=== PATIENT | female | born 1940 | race Caucasian/White ===

== ENCOUNTER 2021-01-20 23:19 | Emergency (ER) | payer MEDICARE ==
[~2021-01-20] VITALS: Ht 152.4 cm; Wt 74.5 kg
[2021-01-20] MEDS ORDERED: SODIUM CHLORIDE 0.9% 1,000ML IVBOLUS ONE (23:30)
[2021-01-20 23:54] LABS: BASOPHILS % (AUTO) 0 % (0-1); EOSINOPHILS % (AUTO) 0 % (1-7); LYMPHOCYTES % (AUTO) 4 % (22-44); MEAN CORPUSCULAR HEMOGLOBIN 29.6 pg (27.0-34.8); MEAN CORPUSCULAR HGB CONC 33.6 g/dL (32.4-35.8); MEAN PLATELET VOLUME 7.4 fL (7.4-10.4); MONOCYTES % (AUTO) 4 % (2-9); NEUTROPHILS % (AUTO) 91 % (42-75); PLATELET COUNT 245 x10^3/uL (130-400); RED BLOOD COUNT 4.93 x10^6/uL (3.82-5.3); RED CELL DISTRIBUTION WIDTH 15.4 % (9.6-15.2)
[2021-01-20] MEDS ORDERED: DIPHENHYDRAMINE 50 MG/ML, 1ML ONE (23:55)
[2021-01-20] MEDS ORDERED: OMNIPAQUE 350 MG/ML, 100ML BOTTLE ONE (23:59)
--- NOTE | 2021-01-20 23:59 | NUR ---
patient placed in hospital gown. ekg performed. call monzon in reach. safety maintained. will continue to monitor.
[2021-01-21] MEDS ORDERED: DIPHENHYDRAMINE 50 MG/ML, 1ML IVPush ONE
[2021-01-21 00:01] LABS: ALANINE AMINOTRANSFERASE 37 U/L (12-78); ALBUMIN 3.8 g/dL (3.4-5.0); ANION GAP 7 mmol/L (5-15); CALCIUM 9.7 mg/dL (8.5-10.1); CHLORIDE 105 mmol/L (98-107); CREATININE 1.15 mg/dL (0.55-1.02)
[2021-01-21 00:06] LABS: ALKALINE PHOSPHATASE 122 U/L (45-117); BILIRUBIN,TOTAL 0.3 mg/dL (0.2-1.0); TOTAL PROTEIN 6.9 g/dL (6.4-8.2); TROPONIN I < 0.015 ng/mL (0.000-0.045)
[2021-01-21 00:08] LABS: MD SCAN
[2021-01-21] MEDS ORDERED: OMNIPAQUE 350 MG/ML, 100ML BOTTLE ONE (00:28)
--- NOTE | 2021-01-21 00:34 | NUR ---
BREAK RN: PT AT CT.
--- NOTE | 2021-01-21 01:25 | NUR ---
patient assisted to [facility]. steady gait to C
--- NOTE | 2021-01-21 01:49 | NUR ---
patient tolerated PO fluid trial. Dr. villareal notified. patient denies nausea at this time
--- NOTE | 2021-01-21 02:16 | NUR ---
discharge instructions reviewed with patient. no further questions. prescription handed directly to patient. patient requested list of clinics in area to start to establish PCP. this was provided. VS remain stable on RA. IV removed per DC protocol and pressure dressing applied. all personal belongings with patient. WC to lobby
[2021-01-21 02:20] VITALS: BP 149/72
== END 2021-01-21 02:30 | disposition home or self-care (01) ==
LOC: ED 23:49
DX: K52.9 Noninfective gastroenteritis and colitis, unspecified (principal); E86.0 Dehydration; R11.2 Nausea with vomiting, unspecified; R10.84 Generalized abdominal pain; Z85.3 Personal history of malignant neoplasm of breast; Z87.891 Personal history of nicotine dependence
CPT/HCPCS: 36415; 74177; 80053; 83605; 83690; 84484; 85025; 93005; 96361; 96374; 99285; J1200; J7030; Q9967

== ENCOUNTER 2021-01-26 18:28 | Inpatient (IN) | payer MEDICARE ==
[~2021-01-26] VITALS: Ht 152.4 cm; Wt 77.6 kg
--- NOTE | 2021-01-26 18:54 | NUR ---
PT WAS IN ED LAST SUNDAY WITH GASTROENTERITIS AND BEGAN TO FEEL BETTER. LAST NIGHT PT REPORTS SAME PAINS HER GASTROENTERIS PAIN. SAID SHE THREW UP HER DINNER. HAVING PAINS IN HER ABD UPPER QUADRANTS. REPORTS PAIN A INTERMITTENT SHARP AND IRRITATING. HAS BEEN HAVING N/V SINCE.
[2021-01-26] MEDS ORDERED: ONDANSETRON 2MG/ML, 2ML ONE (19:54)
[2021-01-26] MEDS ORDERED: DIPHENHYDRAMINE 50 MG/ML, 1ML ONE (19:54)
[2021-01-26] MEDS ORDERED: methylPREDNISolone SOD SUCC 125 MG/2 ML ONE (19:54)
[2021-01-26] MEDS ORDERED: MORPHINE SULFATE 4 MG/ML, 1ML ONE (19:55)
[2021-01-26] MEDS ORDERED: MORPHINE SULFATE 4 MG/ML, 1ML IVPush PRN (20:00)
[2021-01-26] MEDS ORDERED: DIPHENHYDRAMINE 50 MG/ML, 1ML IVPush ONE (20:00)
[2021-01-26] MEDS ORDERED: SODIUM CHLORIDE 0.9% 1,000 ML IV ONE (20:00)
[2021-01-26] MEDS ORDERED: methylPREDNISolone SOD SUCC 125 MG/2 ML IVPush ONE (20:00)
[2021-01-26] MEDS ORDERED: SODIUM CHLORIDE FLUSH 10ML SYR IVF ONE (20:00)
[2021-01-26] MEDS ORDERED: ONDANSETRON 2MG/ML, 2ML IVPush ONE (20:00)
[2021-01-26 20:22] LABS: BASOPHILS % (AUTO) 0 % (0-1); EOSINOPHILS % (AUTO) 1 % (1-7); LYMPHOCYTES % (AUTO) 6 % (22-44); MEAN CORPUSCULAR HEMOGLOBIN 29.5 pg (27.0-34.8); MEAN CORPUSCULAR HGB CONC 33.2 g/dL (32.4-35.8); MONOCYTES % (AUTO) 8 % (2-9); NEUTROPHILS % (AUTO) 86 % (42-75); PLATELET COUNT 273 x10^3/uL (130-400); RED BLOOD COUNT 4.97 x10^6/uL (3.82-5.3); RED CELL DISTRIBUTION WIDTH 15.3 % (9.6-15.2)
--- NOTE | 2021-01-26 20:28 | NUR ---
PT O2 DROPPED TO 85%. PUT PT ON 2L NC AND SP02 BACK TO 95%
[2021-01-26 20:33] LABS: ALANINE AMINOTRANSFERASE 29 U/L (12-78); ALBUMIN 3.3 g/dL (3.4-5.0); ANION GAP 7 mmol/L (5-15); CHLORIDE 106 mmol/L (98-107); CREATININE 1.04 mg/dL (0.55-1.02)
[2021-01-26 20:35] LABS: ALKALINE PHOSPHATASE 112 U/L (45-117); BILIRUBIN,TOTAL 0.5 mg/dL (0.2-1.0); TOTAL PROTEIN 6.6 g/dL (6.4-8.2)
--- NOTE | 2021-01-26 20:56 | NUR ---
VSS AWAITING TO GO TO CT
--- NOTE | 2021-01-26 20:56 | NUR ---
PT LYING IN BED. TOLERATED MEDS PER MD ORDER.
--- NOTE | 2021-01-26 21:49 | NUR ---
PT OFF UNIT IN IMAGING
[2021-01-26] MEDS ORDERED: OMNIPAQUE 350 MG/ML, 100ML BOTTLE ONE (21:58)
--- NOTE | 2021-01-26 22:42 | NUR ---
PUT PT ON A HOSPITAL BED. PT RESTING IN BED. VSS. TOM LGHT WITHIN REACH. PT ATTACHED TO MONITORS
--- NOTE | 2021-01-26 22:46 | NUR ---
PT DOES NOT REMEMBER THE MEDICATIONS SHE TAKES.
[2021-01-26 22:48] LABS: MICROSCOPIC AUTO
--- NOTE | 2021-01-26 22:59 | NUR ---
REPORT RECIEVED FROM LORA AND JR GALLOWAY
--- NOTE | 2021-01-26 23:32 | NUR ---
HOSPITALIST AT BEDSIDE
[2021-01-27] MEDS ORDERED: ONDANSETRON 2MG/ML, 2ML IVPush PRN
--- NOTE | 2021-01-27 00:36 | NUR ---
atempte ng tube insert x3 with 2 different rn's. 16F and 14F unsuccessful will have another rn try 12 F.
--- NOTE | 2021-01-27 00:36 | NUR ---
report given to jenn neely
--- NOTE | 2021-01-27 01:13 | NUR ---
successful 16F ng tube placement, pt tolerated well, xray ordered for placement
--- NOTE | 2021-01-27 01:15 | NUR ---
Break RN: gear technician at bedside.
[2021-01-27 01:30] VITALS: BP 174/81
[2021-01-27] MEDS: morphine SULFATE 10 MG/ML, 1ML IVPush PRN ×2 (01:49→17:27)
[2021-01-27] MEDS: SODIUM CHLORIDE 0.9% 1,000 ML IV SCH ×2 (02:08→13:48)
[2021-01-27] MEDS: BISACODYL 10 MG SUPP PR SCH ×2 (02:08→08:18)
[2021-01-27 05:57] LABS: BASOPHILS % (AUTO) 0 % (0-1); EOSINOPHILS % (AUTO) 0 % (1-7); LYMPHOCYTES % (AUTO) 3 % (22-44); MEAN CORPUSCULAR HEMOGLOBIN 29.7 pg (27.0-34.8); MEAN CORPUSCULAR HGB CONC 33.3 g/dL (32.4-35.8); MEAN PLATELET VOLUME 7.2 fL (7.4-10.4); MONOCYTES % (AUTO) 1 % (2-9); NEUTROPHILS % (AUTO) 96 % (42-75); PLATELET COUNT 255 x10^3/uL (130-400); RED BLOOD COUNT 4.49 x10^6/uL (3.82-5.3); RED CELL DISTRIBUTION WIDTH 15.2 % (9.6-15.2)
[2021-01-27 06:05] LABS: ANION GAP 9 mmol/L (5-15); CALCIUM 9.4 mg/dL (8.5-10.1); CHLORIDE 105 mmol/L (98-107)
[2021-01-27 06:06] LABS: CREATININE 1.01 mg/dL (0.55-1.02)
[2021-01-27 06:30] VITALS: BP 148/77
[2021-01-27 14:21] VITALS: BP 161/73
[2021-01-27 20:16] VITALS: BP 151/75
[2021-01-27] MEDS ORDERED: DONE5TAB7 PO (22:45)
[2021-01-27] MEDS ORDERED: DILT240C80 PO (22:45)
[2021-01-27] MEDS ORDERED: LEVO88CA4 PO (22:45)
[2021-01-27] MEDS ORDERED: POTASSIUM CHLORIDE PO (22:45)
[2021-01-27] MEDS ORDERED: PRAV10TA2 PO (22:45)
[2021-01-27] MEDS ORDERED: APIX5TAB PO (22:45)
[2021-01-28 03:01] VITALS: BP 155/76
[2021-01-28 04:57] LABS: BASOPHILS % (AUTO) 0 % (0-1); EOSINOPHILS % (AUTO) 2 % (1-7); LYMPHOCYTES % (AUTO) 11 % (22-44); MEAN CORPUSCULAR HEMOGLOBIN 29.3 pg (27.0-34.8); MEAN CORPUSCULAR HGB CONC 32.8 g/dL (32.4-35.8); MEAN PLATELET VOLUME 7.1 fL (7.4-10.4); MONOCYTES % (AUTO) 15 % (2-9); NEUTROPHILS % (AUTO) 72 % (42-75); PLATELET COUNT 239 x10^3/uL (130-400); RED BLOOD COUNT 4.24 x10^6/uL (3.82-5.3); RED CELL DISTRIBUTION WIDTH 15.2 % (9.6-15.2)
[2021-01-28 05:10] LABS: ANION GAP 2 mmol/L (5-15); CALCIUM 8.5 mg/dL (8.5-10.1); CHLORIDE 111 mmol/L (98-107)
[2021-01-28 05:13] LABS: CREATININE 0.95 mg/dL (0.55-1.02)
[2021-01-28] MEDS ORDERED: vitamin b12 PO (05:19)
[2021-01-28] MEDS ORDERED: CALCIUM PO (05:19)
[2021-01-28] MEDS ORDERED: [UNRECOGNIZED DRUG - OTHER] PO (05:19)
[2021-01-28] MEDS ORDERED: CHOLECALCIFEROL PO (05:19)
[2021-01-28] MEDS ORDERED: FLUO40CA2 PO (05:19)
[2021-01-28] MEDS ORDERED: KRIL500C PO (05:19)
[2021-01-28] MEDS ORDERED: areds 2 PO (05:19)
[2021-01-28] MEDS ORDERED: [UNRECOGNIZED DRUG - OTHER] PO (05:19)
[2021-01-28] MEDS: SODIUM CHLORIDE 0.9% 1,000 ML IV SCH ×2 (05:56→18:00)
[2021-01-28 06:53] VITALS: BP 177/79
[2021-01-28] MEDS ORDERED: CHLORHEXIDINE 15 ML UDC ONE (07:40)
[2021-01-28] MEDS ORDERED: CHLORHEXIDINE 15 ML UDC PO ONE (08:00)
[2021-01-28] MEDS ORDERED: ROCURONIUM 10 MG/ML,10ML ONE (08:46)
[2021-01-28] MEDS ORDERED: PROPOFOL 10 MG/ML, 20ML ONE (08:46)
[2021-01-28] MEDS ORDERED: CEFAZOLIN 1,000 MG ONE ×2 (08:46→14:57)
[2021-01-28] MEDS ORDERED: ONDANSETRON 2MG/ML, 2ML ONE (08:46)
[2021-01-28] MEDS ORDERED: GLYCOPYRROLATE 0.2MG/1ML, 5ML ONE (08:46)
[2021-01-28] MEDS ORDERED: DEXAMETHASONE 4 MG/ML, 1ML ONE (08:46)
[2021-01-28] MEDS ORDERED: NEOSTIGMINE 1 MG/ML, 10ML ONE (08:46)
[2021-01-28] MEDS ORDERED: SUCCINYLCHOLINE 20 MG/ML, 10ML ONE (08:46)
[2021-01-28] MEDS ORDERED: CEFOTETAN 2 GM ONE (08:46)
[2021-01-28] MEDS ORDERED: FENTANYL PF 250 MCG/5ML ONE (08:48)
[2021-01-28] MEDS: BISACODYL 10 MG SUPP PR SCH (09:00)
[2021-01-28] MEDS ORDERED: hydrALAzine 20 MG/ML, 1ML IV PRN (12:00)
[2021-01-28] MEDS ORDERED: HYDROmorphone 2 MG/ML, 1ML IVPush PRN (12:00)
[2021-01-28] MEDS ORDERED: ALBUTEROL SULFATE 2.5 MG/3 ML NPPB PRN (12:00)
[2021-01-28] MEDS ORDERED: KETOROLAC 30 MG/1 ML IV PRN (12:00)
[2021-01-28] MEDS ORDERED: OXYcodone 5 MG/5 ML ORAL.SOL UDC PO PRN (12:00)
[2021-01-28] MEDS ORDERED: ACETAMINOPHEN 325 MG TABLET PO PRN (12:00)
[2021-01-28] MEDS ORDERED: PROMETHAZINE 25 MG/ML, 1ML IV PRN (12:00)
[2021-01-28] MEDS ORDERED: MEPERIDINE/PF 25MG/0.5ML IVPush PRN (12:00)
[2021-01-28] MEDS ORDERED: DIAZEPAM 5 MG/ML, 2ML IVPush PRN (12:00)
[2021-01-28] MEDS ORDERED: LABETALOL 5MG/ML, 20ML ONE (12:18)
[2021-01-28] MEDS: LABETALOL 5MG/ML, 20ML IV PRN ×2 (12:19→12:33)
[2021-01-28] MEDS ORDERED: FENTANYL PF 100 MCG/2ML ONE ×2 (12:29→12:50)
[2021-01-28] MEDS ORDERED: KETOROLAC 30 MG/1 ML ONE (12:29)
[2021-01-28] MEDS: FENTANYL PF 100 MCG/2ML IV PRN ×3 (12:30→12:52)
[2021-01-28 14:06] VITALS: BP 137/58
[2021-01-28] MEDS ORDERED: ONDANSETRON 2MG/ML, 2ML IV PRN (14:30)
[2021-01-28] MEDS: LACTATED RINGERS 1,000 ML IV SCH (14:59)
[2021-01-28 19:36] VITALS: BP 162/63
[2021-01-28] MEDS: CEFOTETAN PMX 1GM/50ML 50 ML IVPB SCH (22:40)
[2021-01-29 00:13] VITALS: BP 108/54
[2021-01-29] MEDS: LACTATED RINGERS 1,000 ML IV SCH ×3 (02:11→23:11)
[2021-01-29 04:21] VITALS: BP 100/55
[2021-01-29 05:12] LABS: ANION GAP 3 mmol/L (5-15); CALCIUM 7.6 mg/dL (8.5-10.1); CHLORIDE 112 mmol/L (98-107); CREATININE 1.51 mg/dL (0.55-1.02)
[2021-01-29 05:13] LABS: BASOPHILS % (AUTO) 0 % (0-1); EOSINOPHILS % (AUTO) 0 % (1-7); LYMPHOCYTES % (AUTO) 7 % (22-44); MEAN CORPUSCULAR HEMOGLOBIN 30.2 pg (27.0-34.8); MEAN CORPUSCULAR HGB CONC 33.6 g/dL (32.4-35.8); MEAN PLATELET VOLUME 7.2 fL (7.4-10.4); MONOCYTES % (AUTO) 12 % (2-9); NEUTROPHILS % (AUTO) 81 % (42-75); PLATELET COUNT 226 x10^3/uL (130-400); RED BLOOD COUNT 3.57 x10^6/uL (3.82-5.3); RED CELL DISTRIBUTION WIDTH 15.2 % (9.6-15.2)
[2021-01-29] MEDS: ENOXAPARIN 40 MG/0.4 ML SQ SCH (05:42)
[2021-01-29 07:07] VITALS: BP 114/51
[2021-01-29] MEDS: CEFOTETAN PMX 1GM/50ML 50 ML IVPB SCH ×2 (10:01→22:07)
[2021-01-29] MEDS: BISACODYL 10 MG SUPP PR SCH (10:01)
[2021-01-29] MEDS: SODIUM CHLORIDE 0.9% 1,000 ML IV SCH (12:30)
[2021-01-29 13:02] VITALS: BP 122/61
[2021-01-29 20:07] VITALS: BP 121/56
[2021-01-30] MEDS: SODIUM CHLORIDE 0.9% 1,000 ML IV SCH ×2 (01:20→14:40)
[2021-01-30 01:55] VITALS: BP 145/49
[2021-01-30] MEDS: ENOXAPARIN 40 MG/0.4 ML SQ SCH (06:26)
[2021-01-30 06:34] LABS: BASOPHILS % (AUTO) 1 % (0-1); EOSINOPHILS % (AUTO) 1 % (1-7); LYMPHOCYTES % (AUTO) 4 % (22-44); MEAN CORPUSCULAR HEMOGLOBIN 30.1 pg (27.0-34.8); MEAN CORPUSCULAR HGB CONC 33.1 g/dL (32.4-35.8); MEAN PLATELET VOLUME 7.1 fL (7.4-10.4); MONOCYTES % (AUTO) 7 % (2-9); NEUTROPHILS % (AUTO) 88 % (42-75); PLATELET COUNT 234 x10^3/uL (130-400); RED BLOOD COUNT 3.45 x10^6/uL (3.82-5.3); RED CELL DISTRIBUTION WIDTH 15.3 % (9.6-15.2)
[2021-01-30 06:43] LABS: ANION GAP 5 mmol/L (5-15); CALCIUM 8.3 mg/dL (8.5-10.1); CHLORIDE 114 mmol/L (98-107); CREATININE 1.15 mg/dL (0.55-1.02)
[2021-01-30 08:20] VITALS: BP 151/70
[2021-01-30] MEDS: BISACODYL 10 MG SUPP PR SCH (09:16)
[2021-01-30] MEDS: LACTATED RINGERS 1,000 ML IV SCH ×2 (09:17→19:38)
[2021-01-30] MEDS: CEFOTETAN PMX 1GM/50ML 50 ML IVPB SCH ×2 (09:19→22:40)
[2021-01-30 13:14] VITALS: BP 151/81
[2021-01-30 19:16] VITALS: BP 145/72
[2021-01-31 01:11] VITALS: BP 147/62
[2021-01-31] MEDS: SODIUM CHLORIDE 0.9% 1,000 ML IV SCH ×2 (04:00→16:11)
[2021-01-31] MEDS: ENOXAPARIN 40 MG/0.4 ML SQ SCH (05:17)
[2021-01-31] MEDS: LACTATED RINGERS 1,000 ML IV SCH ×2 (05:18→16:11)
[2021-01-31 08:13] VITALS: BP 131/73
[2021-01-31] MEDS: BISACODYL 10 MG SUPP PR SCH (09:26)
[2021-01-31] MEDS: CEFOTETAN PMX 1GM/50ML 50 ML IVPB SCH ×2 (09:49→21:51)
[2021-01-31] MEDS: LORazepam 2 MG/ML, 1ML IVPush PRN (13:57)
[2021-01-31 15:09] VITALS: BP 131/78
[2021-01-31] MEDS ORDERED: TPN PER PHARMACY MC PRN (17:30)
[2021-01-31 18:39] VITALS: BP 124/62
[2021-02-01 01:26] VITALS: BP 155/67
[2021-02-01] MEDS: LACTATED RINGERS 1,000 ML IV SCH ×2 (01:55→12:26)
[2021-02-01 06:11] LABS: ALANINE AMINOTRANSFERASE 15 U/L (12-78); ALBUMIN 1.7 g/dL (3.4-5.0); ANION GAP 7 mmol/L (5-15); CALCIUM 8.4 mg/dL (8.5-10.1); CHLORIDE 115 mmol/L (98-107); CREATININE 0.89 mg/dL (0.55-1.02)
[2021-02-01 06:17] LABS: ALKALINE PHOSPHATASE 81 U/L (45-117); BILIRUBIN,TOTAL 0.4 mg/dL (0.2-1.0); PREALBUMIN 3.2 mg/dL (20.0-40.0); TOTAL PROTEIN 4.9 g/dL (6.4-8.2); TRIGLYCERIDES 132 mg/dL (50-200)
[2021-02-01] MEDS: SODIUM CHLORIDE 0.9% 1,000 ML IV SCH ×2 (06:40→20:00)
[2021-02-01 06:41] VITALS: BP 161/84
[2021-02-01] MEDS: BISACODYL 10 MG SUPP PR SCH (08:08)
[2021-02-01] MEDS: LORazepam 2 MG/ML, 1ML IVPush PRN ×2 (08:18→18:53)
[2021-02-01] MEDS ORDERED: ENOXAPARIN 30 MG/0.3 ML SQ SCH (09:00)
[2021-02-01] MEDS: CEFOTETAN PMX 1GM/50ML 50 ML IVPB SCH (10:40)
[2021-02-01] MEDS ORDERED: FILTER, DISP 1.2 MICRON FOR TPN/PVN IV PRN (12:00)
[2021-02-01 12:40] VITALS: BP 149/87
[2021-02-01] MEDS ORDERED: POTASSIUM CHLORIDE 40 MEQ in SODIUM CHLORIDE 0.9% 500 ML IV ONE (16:30)
[2021-02-01] MEDS ORDERED: DEXTROSE 50%, 50ML SYRINGE IVPush PRN (17:00)
[2021-02-01] MEDS ORDERED: PVN PER PHARMACY IV SCH (17:00)
[2021-02-01] MEDS ORDERED: [UNRECOGNIZED DRUG - OTHER] IV SCH (17:00)
[2021-02-01] MEDS ORDERED: FAT EMUL IV SCH (17:00)
[2021-02-01] MEDS ORDERED: DEXTROSE 10% 500 ML IV PRN (17:00)
[2021-02-01] MEDS ORDERED: SMOF TPN IV SCH (17:00)
[2021-02-01] MEDS ORDERED: DEXTROSE 70% IV SCH (17:00)
[2021-02-01] MEDS ORDERED: AMINO ACID 10% IV SCH (17:00)
[2021-02-01] MEDS ORDERED: ENOXAPARIN 40 MG/0.4 ML SQ SCH (17:30)
[2021-02-01 18:45] VITALS: BP 168/74
[2021-02-01] MEDS: INSULIN REGULAR LOW DOSE Q6H X 48HRS SQ-INSULIN SCH (21:00)
[2021-02-02 00:27] VITALS: BP 176/76
[2021-02-02] MEDS: hydrALAzine 20 MG/ML, 1ML IV PRN ×3 (00:58→12:19)
[2021-02-02] MEDS: INSULIN REGULAR LOW DOSE Q6H X 48HRS SQ-INSULIN SCH ×4 (03:00→21:40)
[2021-02-02 05:29] LABS: ALBUMIN 1.7 g/dL (3.4-5.0); ANION GAP 4 mmol/L (5-15); CALCIUM 8.2 mg/dL (8.5-10.1); CHLORIDE 114 mmol/L (98-107)
[2021-02-02 05:34] LABS: ALANINE AMINOTRANSFERASE 17 U/L (12-78); ALKALINE PHOSPHATASE 83 U/L (45-117); BILIRUBIN,TOTAL 0.4 mg/dL (0.2-1.0); CREATININE 0.69 mg/dL (0.55-1.02); TOTAL PROTEIN 4.8 g/dL (6.4-8.2)
[2021-02-02 06:59] VITALS: BP 166/63
[2021-02-02] MEDS: SODIUM CHLORIDE 0.9% 1,000 ML IV SCH (07:03)
[2021-02-02] MEDS: ENOXAPARIN 40 MG/0.4 ML SQ SCH (07:37)
[2021-02-02 08:25] VITALS: BP 158/71
[2021-02-02] MEDS ORDERED: SODIUM CHLORIDE 0.9% 1,000 ML IV SCH (09:00)
[2021-02-02] MEDS: BISACODYL 10 MG SUPP PR SCH (09:17)
[2021-02-02] MEDS ORDERED: FAT EMUL IV SCH ×2 (09:44→17:00)
[2021-02-02] MEDS ORDERED: DEXTROSE 70% IV SCH ×2 (09:44→17:00)
[2021-02-02] MEDS ORDERED: [UNRECOGNIZED DRUG - OTHER] IV SCH ×2 (09:44→17:00)
[2021-02-02] MEDS ORDERED: AMINO ACID 10% IV SCH ×2 (09:44→17:00)
[2021-02-02] MEDS ORDERED: SMOF TPN IV SCH ×2 (09:44→17:00)
[2021-02-02] MEDS ORDERED: POTASSIUM PHOSPHATE IV ONE (10:00)
[2021-02-02] MEDS ORDERED: POTASSIUM CHLORIDE 20 MEQ in SODIUM CHLORIDE 0.9% 250 ML IV ONE (10:00)
[2021-02-02] MEDS ORDERED: DEXTROSE 5% IV ONE (10:00)
[2021-02-02] MEDS: METHYLNALTREXONE 12 MG/0.6 ML SYR SQ SCH (10:40)
[2021-02-02 12:15] VITALS: BP 161/72
[2021-02-02 13:56] VITALS: BP 133/57
[2021-02-02] MEDS ORDERED: FILTER, DISP 1.2 MICRON FOR TPN/PVN IV PRN (17:00)
[2021-02-02] MEDS: POTASSIUM CHLORIDE 20 MEQ TAB.ER.PRT PO SCH (17:07)
[2021-02-02 19:40] VITALS: BP 126/65
[2021-02-03 02:38] VITALS: BP 168/64
[2021-02-03] MEDS: hydrALAzine 20 MG/ML, 1ML IV PRN ×3 (02:46→20:26)
[2021-02-03] MEDS: INSULIN REGULAR LOW DOSE Q6H X 48HRS SQ-INSULIN SCH ×2 (02:48→08:15)
[2021-02-03 05:27] LABS: ANION GAP 5 mmol/L (5-15); CALCIUM 7.9 mg/dL (8.5-10.1); CHLORIDE 113 mmol/L (98-107)
[2021-02-03 05:28] LABS: CREATININE 0.68 mg/dL (0.55-1.02)
[2021-02-03 07:10] VITALS: BP 168/64
[2021-02-03] MEDS: POTASSIUM CHLORIDE 20 MEQ TAB.ER.PRT PO SCH ×2 (07:35→17:00)
[2021-02-03] MEDS: BISACODYL 10 MG SUPP PR SCH (08:10)
[2021-02-03] MEDS: ENOXAPARIN 40 MG/0.4 ML SQ SCH (08:11)
[2021-02-03 13:49] VITALS: BP 135/77
[2021-02-03] MEDS ORDERED: FAT EMUL IV SCH (17:00)
[2021-02-03] MEDS ORDERED: FILTER, DISP 1.2 MICRON FOR TPN/PVN IV PRN (17:00)
[2021-02-03] MEDS ORDERED: [UNRECOGNIZED DRUG - OTHER] IV SCH (17:00)
[2021-02-03] MEDS ORDERED: SMOF TPN IV SCH (17:00)
[2021-02-03] MEDS ORDERED: AMINO ACID 10% IV SCH (17:00)
[2021-02-03] MEDS ORDERED: DEXTROSE 70% IV SCH (17:00)
[2021-02-03 19:43] VITALS: BP 174/77
[2021-02-03] MEDS: INSULIN REGULAR LOW DOSE QDAY SQ-INSULIN SCH (21:00)
[2021-02-03 22:47] VITALS: BP 144/60
[2021-02-04 01:52] VITALS: BP 159/74
[2021-02-04 05:10] LABS: ANION GAP 4 mmol/L (5-15); CALCIUM 7.8 mg/dL (8.5-10.1); CHLORIDE 112 mmol/L (98-107)
[2021-02-04 05:11] LABS: CREATININE 0.58 mg/dL (0.55-1.02)
[2021-02-04 06:40] VITALS: BP 147/78
[2021-02-04] MEDS: POTASSIUM CHLORIDE 20 MEQ TAB.ER.PRT PO SCH (07:59)
[2021-02-04] MEDS: BISACODYL 10 MG SUPP PR SCH (07:59)
[2021-02-04] MEDS: ENOXAPARIN 40 MG/0.4 ML SQ SCH (08:00)
[2021-02-04] MEDS: METHYLNALTREXONE 12 MG/0.6 ML SYR SQ SCH (09:38)
[2021-02-04 12:52] VITALS: BP 158/81
[2021-02-04] MEDS: FILTER, DISP 1.2 MICRON FOR TPN/PVN IV PRN (16:22)
[2021-02-04] MEDS ORDERED: FUROSEMIDE 40 MG/4 ML ONE (16:39)
[2021-02-04] MEDS: FUROSEMIDE 40 MG/4 ML IV SCH (16:41)
[2021-02-04] MEDS ORDERED: AMINO ACID 10% 750 ML, DEXTROSE 70% 350 ML, FAT EMUL/SMOF TPN 175 ML, STERILE WATER 1,0... IV SCH (17:00)
[2021-02-04 20:22] VITALS: BP 126/60
[2021-02-04] MEDS: INSULIN REGULAR LOW DOSE QDAY SQ-INSULIN SCH (22:23)
[2021-02-05 02:35] VITALS: BP 152/68
[2021-02-05 05:09] LABS: ANION GAP 3 mmol/L (5-15); CALCIUM 8.2 mg/dL (8.5-10.1); CHLORIDE 104 mmol/L (98-107); CREATININE 0.67 mg/dL (0.55-1.02)
[2021-02-05 07:09] VITALS: BP 145/77
[2021-02-05] MEDS: FUROSEMIDE 40 MG/4 ML IV SCH ×2 (08:13→16:30)
[2021-02-05] MEDS: BISACODYL 10 MG SUPP PR SCH (08:13)
[2021-02-05] MEDS: ENOXAPARIN 40 MG/0.4 ML SQ SCH (08:14)
[2021-02-05 12:41] VITALS: BP 154/61
[2021-02-05] MEDS ORDERED: FAT EMUL IV SCH (17:00)
[2021-02-05] MEDS ORDERED: SMOF TPN IV SCH (17:00)
[2021-02-05] MEDS ORDERED: DEXTROSE 70% IV SCH (17:00)
[2021-02-05] MEDS ORDERED: [UNRECOGNIZED DRUG - OTHER] IV SCH (17:00)
[2021-02-05] MEDS ORDERED: AMINO ACID 10% IV SCH (17:00)
[2021-02-05] MEDS: LORazepam 2 MG/ML, 1ML IVPush PRN (17:27)
[2021-02-05] MEDS: FILTER, DISP 1.2 MICRON FOR TPN/PVN IV PRN (17:40)
[2021-02-05 19:01] VITALS: BP 132/66
[2021-02-05] MEDS: INSULIN REGULAR LOW DOSE QDAY SQ-INSULIN SCH (21:45)
[2021-02-06 01:16] VITALS: BP 140/62
[2021-02-06 05:58] LABS: ANION GAP 7 mmol/L (5-15); CALCIUM 8.3 mg/dL (8.5-10.1); CHLORIDE 98 mmol/L (98-107)
[2021-02-06 05:59] LABS: CREATININE 0.79 mg/dL (0.55-1.02)
[2021-02-06 06:55] VITALS: BP 127/57
[2021-02-06] MEDS: ENOXAPARIN 40 MG/0.4 ML SQ SCH (08:15)
[2021-02-06] MEDS: FUROSEMIDE 40 MG/4 ML IV SCH ×2 (08:15→17:41)
[2021-02-06] MEDS: BISACODYL 10 MG SUPP PR SCH (08:17)
[2021-02-06 15:18] VITALS: BP 138/48
[2021-02-06] MEDS ORDERED: DEXTROSE 70% IV SCH ×2 (17:00)
[2021-02-06] MEDS ORDERED: [UNRECOGNIZED DRUG - OTHER] IV SCH (17:00)
[2021-02-06] MEDS ORDERED: [UNRECOGNIZED DRUG - OTHER] IV SCH (17:00)
[2021-02-06] MEDS ORDERED: SMOF TPN IV SCH ×2 (17:00)
[2021-02-06] MEDS ORDERED: AMINO ACID 10% IV SCH ×2 (17:00)
[2021-02-06] MEDS ORDERED: FAT EMUL IV SCH ×2 (17:00)
[2021-02-06 19:03] VITALS: BP 107/67
[2021-02-07 03:50] VITALS: BP 108/48
[2021-02-07 07:30] VITALS: BP 118/56
[2021-02-07] MEDS: FUROSEMIDE 40 MG/4 ML IV SCH ×2 (08:09→17:00)
[2021-02-07] MEDS: ENOXAPARIN 40 MG/0.4 ML SQ SCH (09:25)
[2021-02-07 13:43] VITALS: BP 121/74
[2021-03-02] MEDS ORDERED: MERO1PIG IVPB (10:35)
[2021-03-02] MEDS ORDERED: DILT120C2 PO (10:35)
[2021-03-02] MEDS ORDERED: DAPT500V6 IVPB (10:35)
[2021-03-02] MEDS ORDERED: PANT40TA6 PO (10:35)
== END 2021-02-07 17:45 | disposition home health service (06) | DRG 329 ==
LOC: ED 20:15 → EDIP 23:25 → 4NE 01-27 01:30
PROVIDERS: ADMIT Internal Medicine; ATTEND Family Medicine
PROC: 0D9670Z Drainage of Stomach with Drainage Device, Via Natural or Artificial Opening (ICD-10-PCS; 2021-01-27)
PROC: 0DB80ZZ Excision of Small Intestine, Open Approach (ICD-10-PCS; 2021-01-28)
PROC: 0DN80ZZ Release Small Intestine, Open Approach (ICD-10-PCS; principal; 2021-01-28 08:30)
PROC: 3E0336Z Introduction of Nutritional Substance into Peripheral Vein, Percutaneous Approach (ICD-10-PCS; 2021-02-05)
DX: K56.51 Intestinal adhesions [bands], with partial obstruction (principal); N17.0 Acute kidney failure with tubular necrosis; E46 Unspecified protein-calorie malnutrition; F41.9 Anxiety disorder, unspecified; I10 Essential (primary) hypertension; K29.70 Gastritis, unspecified, without bleeding; K56.7 Ileus, unspecified; K57.90 Diverticulosis of intestine, part unspecified, without perforation or abscess without bleeding; Z85.3 Personal history of malignant neoplasm of breast; Z87.891 Personal history of nicotine dependence; Z93.3 Colostomy status; E03.9 Hypothyroidism, unspecified; E78.5 Hyperlipidemia, unspecified; I48.91 Unspecified atrial fibrillation; Z20.822 Contact with and (suspected) exposure to COVID-19; Z91.041 Radiographic dye allergy status; Z88.5 Allergy status to narcotic agent; Z88.0 Allergy status to penicillin; Z91.048 Other nonmedicinal substance allergy status
CPT/HCPCS: 36415; 71045; 74018; 74177; 80048; 80053; 81001; 82962; 83690; 83735; 84100; 84134; 84478; 85025; 87086; 87635; 88307; 93005; 96374; 96375; 99285; G0378; J0610; J0690; J1100; J1650; J1885; J1940; J2270; J2405; J2704; J2710; J3010; J3475; J3480; Q9967; C1765; J0330; J0360; J1200; J1644; J1720; J2060; J2930; J3420; J7030; J7050; J7120

== ENCOUNTER 2021-04-05 09:18 | Day surgery (SDC) | payer MEDICARE ==
[~2021-04-05] VITALS: Ht 152.4 cm; Wt 69.2 kg
[~2021-04-05 09:18] MED LIST: APIX5TAB PO; CALCIUM PO; CHOLECALCIFEROL PO; DAPT500V6 IVPB; DILT120C2 PO; DILT240C80 PO; DONE5TAB7 PO; FLUO40CA2 PO; KRIL500C PO; LEVO88CA4 PO; MERO1PIG IVPB; PANT40TA6 PO; POTASSIUM CHLORIDE PO; PRAV10TA2 PO; [UNRECOGNIZED DRUG - OTHER] PO; [UNRECOGNIZED DRUG - OTHER] PO; areds 2 PO; vitamin b12 PO
[2021-04-05 10:39] VITALS: BP 187/78
[2021-04-05] MEDS ORDERED: SODIUM CHLORIDE 0.9% 1,000 ML IV SCH (11:00)
[2021-04-05] MEDS ORDERED: LIDOCAINE-MPF 1%, 5ML ONE ×2 (11:14)
[2021-04-05] MEDS ORDERED: FENTANYL PF 100 MCG/2ML ONE (11:26)
[2021-04-05] MEDS ORDERED: MIDAZOLAM 1 MG/ML, 5ML ONE (11:26)
[2021-04-05] MEDS ORDERED: NALOXONE 1 MG/ML, 2ML ONE (11:27)
[2021-04-05] MEDS ORDERED: FLUMAZENIL 0.1 MG/1 ML, 5ML ONE (11:27)
== END 2021-04-05 13:55 | disposition home or self-care (01) ==
LOC: OUT 09:18 → EDSTATUS 11:00 → OUT 13:55
PROVIDERS: ATTEND Internal Medicine
DX: Z45.2 Encounter for adjustment and management of vascular access device (principal); I11.0 Hypertensive heart disease with heart failure; I50.30 Unspecified diastolic (congestive) heart failure; I48.0 Paroxysmal atrial fibrillation; E78.5 Hyperlipidemia, unspecified; E03.9 Hypothyroidism, unspecified; F41.1 Generalized anxiety disorder; Z79.01 Long term (current) use of anticoagulants; Z79.890 Hormone replacement therapy; Z79.899 Other long term (current) drug therapy; Z87.891 Personal history of nicotine dependence; Z88.0 Allergy status to penicillin; Z88.5 Allergy status to narcotic agent; Z91.041 Radiographic dye allergy status
CPT/HCPCS: 36589; 77001; 99156; J2250; J3010; J7030; J2310

== ENCOUNTER 2021-04-19 16:24 | Emergency (ER) | payer MEDICARE ==
[~2021-04-19] VITALS: Ht 152.4 cm; Wt 62.4 kg
[2021-04-19 17:03] LABS: MEAN CORPUSCULAR HEMOGLOBIN 26.8 pg (27.0-34.8); MEAN CORPUSCULAR HGB CONC 33.3 g/dL (32.4-35.8); MEAN PLATELET VOLUME 7.4 fL (7.4-10.4); PLATELET COUNT 234 x10^3/uL (130-400); RED BLOOD COUNT 4.41 x10^6/uL (3.82-5.3); RED CELL DISTRIBUTION WIDTH 17.3 % (9.6-15.2)
[2021-04-19 17:16] LABS: ALANINE AMINOTRANSFERASE 283 U/L (12-78); ALBUMIN 3.1 g/dL (3.4-5.0); CALCIUM 8.6 mg/dL (8.5-10.1); CHLORIDE 101 mmol/L (98-107); CREATININE 0.89 mg/dL (0.55-1.02)
[2021-04-19 17:18] LABS: ALKALINE PHOSPHATASE 406 U/L (45-117); BILIRUBIN,TOTAL 0.7 mg/dL (0.2-1.0)
[2021-04-19 17:26] LABS: ANION GAP 12 mmol/L (5-15)
[2021-04-19 17:55] LABS: <PLATELET ESTIMATE> ADEQUATE; <PLT MORPHOLOGY> NORMAL PLT MORPH; BASOS#(MANUAL) 0.09 x10^3/uL (0-0.1); BASOS% (MANUAL) 1 % (0-1); LYMPH#(MANUAL) 0.47 x10^3/uL (1-3.4); LYMPHS% (MANUAL) 5 % (22-44); MONOS#(MANUAL) 0.38 x10^3/uL (0.3-2.7); MONOS% (MANUAL) 4 % (2-9); SEG#(MANUAL) 8.46 x10^3/uL (1.8-6.8); SEGS% (MANUAL) 90 % (42-75)
[2021-04-19 17:56] LABS: ANISOCYTOSIS 1+; MICROCYTOSIS 1+
--- NOTE | 2021-04-19 19:51 | NUR ---
regrind mill operator: Pt ambulatory to room from lobby at this time.
[2021-04-19] MEDS ORDERED: POTASSIUM CHLORIDE 40 MEQ in SODIUM CHLORIDE 0.9% 500 ML IV ONE (20:30)
[2021-04-19 20:41] LABS: MICROSCOPIC INDICATED
--- NOTE | 2021-04-19 20:49 | NUR ---
piv attempt failed x 3 at this time. another rn to attempt
[2021-04-20 00:53] VITALS: BP 171/85
[2021-04-20] MEDS ORDERED: POTASSIUM CHLORIDE 20 MEQ TAB.ER.PRT ONE (01:06)
[2021-04-20] MEDS ORDERED: POTASSIUM CHLORIDE 20 MEQ TAB.ER.PRT PO ONE (01:30)
== END 2021-04-20 01:44 | disposition home or self-care (01) ==
LOC: ED 20:32
DX: E86.0 Dehydration (principal); R11.2 Nausea with vomiting, unspecified; E87.6 Hypokalemia; R10.84 Generalized abdominal pain; I10 Essential (primary) hypertension; E78.5 Hyperlipidemia, unspecified; I48.91 Unspecified atrial fibrillation; Z87.891 Personal history of nicotine dependence
CPT/HCPCS: 36415; 74021; 74176; 76700; 80053; 81001; 85025; 87086; 96365; 96366; 99285; J3480; J7040